=== PATIENT | male | born 1985 | race African-American/Black ===

== ENCOUNTER 2019-09-21 13:25 | Inpatient (IN) | payer SELFPAY ==
[~2019-09-21] VITALS: Ht 188 cm; Wt 115.3 kg
[2019-09-21] MEDS ORDERED: NALOXONE HCL 1MG/ML 2ML SYRINGE ONE (13:35)
[2019-09-21] MEDS ORDERED: NALOXONE HCL 1MG/ML 2ML SYRINGE IV ONE (13:45)
[2019-09-21] MEDS ORDERED: SODIUM CHLORIDE 0.9% 500 ML IVB ONE (13:51)
[2019-09-21 14:00] LABS: Hematocrit 50.8 % (41.0-53.0); Hemoglobin 16.1 g/dL (13.5-17.5); Mean Corpuscular Hemoglobin 29.2 pg (28.0-32.0); Mean Corpuscular Hgb Conc. 31.8 g/dL (32.0-36.0); Mean Corpuscular Volume 91.9 fL (80.0-100.0); Platelet Count (auto) 401 10^3/uL (140-450); Red Blood Cells 5.52 10^6/uL (4.5-5.90); Red Cell Distribution Width 14.8 % (11.8-14.3); White Blood Cell 29.9 10^3/uL (4.4-10.8)
[2019-09-21 14:06] LABS: Basophils % (manual) 0 (0.0-2.0); Blast Cells 0; Eosinophils % (manual) 0 (0-7); Myelocytes % 0; Promyelocytes % 0; Reactive Lymphocytes 0
[2019-09-21 14:20] LABS: Anion Gap 12 (5-15); BUN/Creatinine Ratio 5.9; Blood Alcohol < 3.0 mg/dL (0-5); Blood Urea Nitrogen 15 mg/dL (7-18); Calcium 9.4 mg/dL (8.5-10.1); Carbon Dioxide 24 mmol/L (21-32); Chloride 101 mmol/L (98-107); GFR African American 37 mL/min; GFR Non-African American 31 mL/min; Glucose 158 mg/dL (74-106); Magnesium 3.3 mg/dL (1.6-2.6); Potassium 5.5 mmol/L (3.5-5.1); Sodium 137 mmol/L (136-145)
[2019-09-21 14:21] LABS: Band Neutrophils % (manual) 17; Lymphocytes % (manual) 10 (10.0-50.0); Metamyelocytes % 2; Monocytes % (manual) 3 (0-12)
[2019-09-21 14:22] LABS: Salicylate < 1.7 mg/dL (2.8-20.0)
[2019-09-21 14:23] LABS: Alanine Aminotransferase 75 U/L (16-61); Alkaline Phosphatase 129 U/L (45-117); Aspartate Aminotransferase 102 U/L (15-37); Bilirubin, Total 0.2 mg/dL (0.2-1.0)
[2019-09-21 14:24] LABS: Acetaminophen < 2.0 ug/mL (10-30)
[2019-09-21] MEDS ORDERED: SODIUM BICARBONATE 8.4 % INJ 50ML VIAL IV ONE (16:15)
[2019-09-21] MEDS ORDERED: IPRATROPIUM BROM 0.5 MG/2.5ML INH SOL NEB PRN (16:15)
[2019-09-21] MEDS ORDERED: ALBUTEROL SULF 2.5 MG/0.5ML(0.5%) NEB SOLN NEB PRN (16:15)
[2019-09-21] MEDS ORDERED: NITROGLYCERIN 0.4 MG SL TAB SL PRN (16:15)
[2019-09-21] MEDS ORDERED: MORPHINE SULF INJ 2 MG/ML SYRINGE 1ML IV PRN ×2 (16:15)
[2019-09-21] MEDS: SODIUM BICARBONATE 50ML VIAL 50 ML in SOD CHL 0.45% 1,000 ML IV SCH (18:21)
[2019-09-21 22:00] VITALS: BP 116/67
[2019-09-21 22:22] VITALS: BP 116/67
[2019-09-22] MEDS ORDERED: SODIUM BICARBONATE 8.4 % INJ 50ML VIAL IV ONE (02:35)
[2019-09-22] MEDS: SODIUM BICARBONATE 50ML VIAL 50 ML in SOD CHL 0.45% 1,000 ML IV SCH ×2 (02:51→13:46)
[2019-09-22 02:52] VITALS: BP 116/67
[2019-09-22 05:58] VITALS: BP 138/70
[2019-09-22 09:00] VITALS: BP 139/71
[2019-09-22] MEDS: FAMOTIDINE 20 MG TAB PO SCH (09:37)
[2019-09-22 13:00] VITALS: BP 134/77
[2019-09-22 13:31] LABS: Basophils # (auto) 0 uL; Basophils % (auto) 0.1 % (0.0-2.0); Eosinophils # (auto) 0 uL; Eosinophils % (auto) 0.2 % (0.0-7.0); Hematocrit 41.5 % (41.0-53.0); Hemoglobin 13.6 g/dL (13.5-17.5); Lymphocytes # (auto) 1.4 uL; Mean Corpuscular Hemoglobin 29.4 pg (28.0-32.0); Mean Corpuscular Hgb Conc. 32.9 g/dL (32.0-36.0); Mean Corpuscular Volume 89.3 fL (80.0-100.0); Monocytes % (auto) 5.8 % (0.0-12.0); Neutrophils # (auto) 14.8 uL; Neutrophils % (auto) 85.9 % (37.0-80.0); Platelet Count (auto) 293 10^3/uL (140-450); Red Blood Cells 4.65 10^6/uL (4.5-5.90); Red Cell Distribution Width 14.6 % (11.8-14.3); White Blood Cell 17.2 10^3/uL (4.4-10.8)
[2019-09-22 13:49] LABS: BUN/Creatinine Ratio 12.1; Calcium 8.4 mg/dL (8.5-10.1); Potassium 3.9 mmol/L (3.5-5.1)
[2019-09-22 13:52] LABS: Bilirubin, Total 0.3 mg/dL (0.2-1.0); Total Protein 7.1 g/dL (6.4-8.2)
[2019-09-22 17:00] VITALS: BP 110/67
[2019-09-22] MEDS ORDERED: DOXYCYCLINE 100 MG TAB/CAP PO ONE (18:45)
[2019-09-22] MEDS: cefTRIAXone 1GM/50ML D5W 50 ML IV SCH (20:30)
[2019-09-22 21:19] LABS: Urine Bacteria NONE SEEN /hpf (None Seen); Urine Blood Negative /uL (Negative); Urine Specific Gravity 1.005 (1.001-1.035); Urine WBC 2 /hpf (0 - 3)
[2019-09-22 21:36] LABS: Alcohol, Urine < 3.0 mg/dL (0-5); Amphetamine Screen, Urine POSITIVE (NEGATIVE); Barbiturate Scree,Urine NEGATIVE (NEGATIVE); Benzodiazephine Screen, Urine NEGATIVE (NEGATIVE); Cannabinoid Screen, Urine NEGATIVE (NEGATIVE); Cocaine Screen, Urine NEGATIVE (NEGATIVE); Opiate Scree,Urine NEGATIVE (NEGATIVE); Phencyclidine Screen, Urine NEGATIVE (NEGATIVE)
[2019-09-22 22:00] VITALS: BP_SYST 132; BP_SYST 156; BP_DIAS 66; BP_DIAS 89
[2019-09-23 05:00] VITALS: BP 142/79
[2019-09-23 09:00] VITALS: BP 156/89
[2019-09-23] MEDS: FAMOTIDINE 20 MG TAB PO SCH (09:28)
[2019-09-23] MEDS: cefTRIAXone 1GM/50ML D5W 50 ML IV SCH ×2 (09:28→21:02)
[2019-09-23] MEDS: DOXYCYCLINE 100 MG TAB/CAP PO SCH ×2 (09:28→21:02)
[2019-09-23 12:32] LABS: Albumin 3.5 g/dL (3.4-5.0); Calcium 9.2 mg/dL (8.5-10.1); Potassium 4.1 mmol/L (3.5-5.1)
[2019-09-23 12:35] LABS: Basophils # (auto) 0.1 uL; Basophils % (auto) 0.7 % (0.0-2.0); Eosinophils # (auto) 0.2 uL; Eosinophils % (auto) 1.6 % (0.0-7.0); Hemoglobin 14.2 g/dL (13.5-17.5); Lymphocytes # (auto) 2.2 uL; Lymphocytes % (auto) 17.2 % (10.0-50.0); Mean Corpuscular Hemoglobin 29.3 pg (28.0-32.0); Mean Corpuscular Volume 88.9 fL (80.0-100.0); Monocytes # (auto) 1.2 uL; Monocytes % (auto) 9.7 % (0.0-12.0); Neutrophils # (auto) 8.9 uL; Neutrophils % (auto) 70.8 % (37.0-80.0); Platelet Count (auto) 315 10^3/uL (140-450); Red Blood Cells 4.84 10^6/uL (4.5-5.90); Red Cell Distribution Width 15.2 % (11.8-14.3); White Blood Cell 12.6 10^3/uL (4.4-10.8)
[2019-09-23 12:39] LABS: BUN/Creatinine Ratio 10.1; Bilirubin, Total 0.3 mg/dL (0.2-1.0); Total Protein 8.3 g/dL (6.4-8.2)
[2019-09-23 13:00] VITALS: BP 139/85
[2019-09-23 16:35] VITALS: BP 156/85
[2019-09-23] MEDS ORDERED: amLODIPine BESYLATE 5 MG TAB PO ONE (19:00)
[2019-09-23 22:00] VITALS: BP 158/107
[2019-09-24 05:00] VITALS: BP 143/78
[2019-09-24 06:11] LABS: Basophils # (auto) 0 uL; Basophils % (auto) 0.4 % (0.0-2.0); Eosinophils # (auto) 0.2 uL; Eosinophils % (auto) 1.7 % (0.0-7.0); Hematocrit 44.2 % (41.0-53.0); Hemoglobin 15.1 g/dL (13.5-17.5); Lymphocytes # (auto) 2.1 uL; Lymphocytes % (auto) 20.7 % (10.0-50.0); Mean Corpuscular Hemoglobin 30.3 pg (28.0-32.0); Mean Corpuscular Hgb Conc. 34.2 g/dL (32.0-36.0); Mean Corpuscular Volume 88.7 fL (80.0-100.0); Monocytes # (auto) 1.1 uL; Monocytes % (auto) 10.9 % (0.0-12.0); Neutrophils # (auto) 6.7 uL; Neutrophils % (auto) 66.3 % (37.0-80.0); Platelet Count (auto) 303 10^3/uL (140-450); Red Blood Cells 4.99 10^6/uL (4.5-5.90); Red Cell Distribution Width 14.3 % (11.8-14.3); White Blood Cell 10.1 10^3/uL (4.4-10.8)
[2019-09-24 06:39] LABS: Calcium 9.9 mg/dL (8.5-10.1); Potassium 4.1 mmol/L (3.5-5.1)
[2019-09-24 06:44] LABS: Albumin 3.6 g/dL (3.4-5.0); BUN/Creatinine Ratio 11.8; Bilirubin, Total 0.5 mg/dL (0.2-1.0); Total Protein 8.8 g/dL (6.4-8.2)
[2019-09-24 09:00] VITALS: BP 161/90
[2019-09-24] MEDS: cefTRIAXone 1GM/50ML D5W 50 ML IV SCH (09:22)
[2019-09-24] MEDS: FAMOTIDINE 20 MG TAB PO SCH (09:38)
[2019-09-24] MEDS: DOXYCYCLINE 100 MG TAB/CAP PO SCH (09:39)
[2019-09-24] MEDS ORDERED: amLODIPine BESYLATE 5 MG TAB PO SCH (10:00)
[2019-09-24 13:00] VITALS: BP 138/89
[2019-09-24 14:17] VITALS: BP 108/76
== END 2019-09-24 16:20 | disposition home or self-care (01) | DRG 871 ==
LOC: EDBD 13:25 → ER 13:38 → TELE 13:39 → TELE-WESTW 21:48
PROVIDERS: ADMIT Nurse Practitioner Acute Care; ATTEND Internal Medicine Nephrology
DX: A41.9 Sepsis, unspecified organism (principal); G92 Toxic encephalopathy; N17.0 Acute kidney failure with tubular necrosis; J96.01 Acute respiratory failure with hypoxia; J15.6 Pneumonia due to other Gram-negative bacteria; I12.9 Hypertensive chronic kidney disease with stage 1 through stage 4 chronic kidney disease, or unspecified chronic kidney disease; N18.3 Chronic kidney disease, stage 3 (moderate); F12.10 Cannabis abuse, uncomplicated; E87.5 Hyperkalemia; E66.9 Obesity, unspecified; F15.10 Other stimulant abuse, uncomplicated; T43.621A Poisoning by amphetamines, accidental (unintentional), initial encounter; Y92.89 Other specified places as the place of occurrence of the external cause
CPT/HCPCS: 36415; 36600; 70450; 71045; 72125; 76700; 80053; 80307; 80320; 80329; 81001; 82805; 83735; 85007; 85025; 85027; 87040; 96361; 96374; 99291; G0378; J0696